=== PATIENT | female | born 1980 | race Caucasian/White ===

== ENCOUNTER 2023-01-27 10:30 | Outpatient (AMB) | payer OTHER, SELFPAY ==
[2023-01-27 10:41] VITALS: BP 128/70; PULSE 75; O2SAT 99; BMI 31.7
--- NOTE | 2023-01-27 10:41 | MHC.OFFVIS ---
Intake Vital Signs 01/27/23 10:41 Height 4 ft 11 in Weight 157 lb BMI 31.7 BP 128/70 Blood Pressure Location Lt brachial Position Sitting Pulse 75 Pulse Source Pulse Oximeter Pulse Oximetry (%) 99 Oxygen Delivery Method Room Air Intake Visit Reasons: persistent cough Cna Ltc Required: No Allergies Sulfa Drugs Adverse Reaction (Severe, Uncoded 01/27/23 10:44) Rash HPI HPI Comments History of Present Illness Details The patient is here for pulmonary evaluation. The patient is a 42 year woman with a known history of asthma and chronic rhinitis, eczema and allergies. Apparently she was in her usual state health until liver more than a year ago when she started developing worsening asthma symptoms. Complaining of cough, typically nonproductive in nature. Also feeling chest heaviness and tightness. As a child she did allergy shots. She does not follow up with Allergy any longer. She did not have to. She was seen by Pulmonary in the [place]. She was scheduled to undergo a sleep study because of her underlying snoring but she did not have any significant sleep apnea. The patient spent struggling. She has been using QVAR on a daily basis. Also has a rescue inhaler that does provide some temporary relief. On exam she does have some expiratory wheezing suggesting active asthma uncontrolled at this time. Will optimize her by adding a long-acting beta agonist along with inhaled cortical steroid. I did provide her a spacer for better administration of the medication. The patient also was prescribed Singulair although she is not using it regularly. I did encourage her to do so. Will request PFTs and allergy testing to be done via blood work to better address her asthma phenotype. The patient did have a chest x-ray last in 2021 without any acute disease. We personally reviewed the x-ray together. [facility] Medical History (Updated 01/27/23 @ 22:16 by Fernando Campbell MD) Allergic rhinitis Asthma Atopic dermatitis Chronic cough Psoriasis Social History (Updated 01/27/23 @ 10:45 by BLANK Reyes) Patient Tobacco Use Status: Never used Tobacco Review of Systems Const Denies fever(s) Eyes Denies change in vision ENT Reports nasal congestion and Reports nasal discharge Card Denies chest pain Resp Reports cough and Reports wheezing GI Denies abdominal pain Musc Reports no additional complaints Skin/Breast Denies rash Neuro Reports no additional complaints Alex/Lymph Denies lymphadenopathy Aller/Immun Reports wheezing Physical Exam Vital Signs: Last Vital Signs Pulse 75 01/27/23 10:41 BP 128/70 01/27/23 10:41 Pulse Ox 99 01/27/23 10:41 Oxygen Delivery Method Room Air 01/27/23 10:41 BMI result Body Mass Index 31.7 Const General: comfortable HEENT Head: Yes atraumatic General nose exam: Abnormal mucous membranes and turbinates present erythematous Neck Neck: Yes supple Chest Chest palpation & inspection: normal inspection of the chest Resp Effort & Inspection: normal respiratory effort Auscultation: wheezes Cardio Rate: regular rate Rhythm: regular rhythm Heart sounds: S1 normal heart sound present and S2 normal heart sound present Skin General skin exam: no rashes or lesions noted Extrem General: Yes no clubbing, cyanosis or edema Assessment & Plan Assessment & Plan (1) Asthma: Code(s): J45.909 - Unspecified asthma, uncomplicated (2) Allergic rhinitis: Code(s): J30.9 - Allergic rhinitis, unspecified (3) Chronic cough: Code(s): R05.3 - Chronic cough (4) Atopic dermatitis: Code(s): L20.9 - Atopic dermatitis, unspecified Plan stop QVAR start Symbicort with spacer 2puff BID should take singulair PM PFTs at [facility]/ allergy testing F/U 6-8 weeks Orders: Orders Rast Allergen Today J30.9 - Allergic rhinitis, unspecified, J45.909 - Unspecified asthma, uncomplicated Complete Blood Count Auto Diff Today J30.9 - Allergic rhinitis, unspecified, J45.909 - Unspecified asthma, uncomplicated Erythrocyte Sedimentation Rate Today J30.9 - Allergic rhinitis, unspecified, J45.909 - Unspecified asthma, uncomplicated Immunoglobulin E Today J30.9 - Allergic rhinitis, unspecified, J45.909 - Unspecified asthma, uncomplicated Immunoglobulins,IgG IgA IgM Today J30.9 - Allergic rhinitis, unspecified, J45.909 - Unspecified asthma, uncomplicated PFT pulmonary function test Today J45.909 - Unspecified asthma, uncomplicated Medications: New budesonide-formoterol 160-4.5 mcg/actuation (Symbicort) 2 puffs inhalation BID 30 days 10.2 grams 11RF J44.9 - Chronic obstructive pulmonary disease, unspecified Coding Level of Care Code New Pt Level 4 (37064) Diagnoses Asthma J45.909 Allergic rhinitis J30.9 Chronic cough R05.3 Atopic dermatitis L20.9 Time Spent (min) 40
== END 2023-01-27 11:16 | disposition home or self-care (01) ==
PROVIDERS: PCP Internal Medicine; Visit Provider Hospitalist
DX: J45.909 Unspecified asthma, uncomplicated (principal); J30.9 Allergic rhinitis, unspecified; R05.3 Chronic cough; L20.9 Atopic dermatitis, unspecified
CPT/HCPCS: 99204

== ENCOUNTER → 2023-01-27 10:30 | Outpatient (BNVA) | payer OTHER, SELFPAY | PROVIDERS: PCP Internal Medicine; Visit Provider Hospitalist ==

== ENCOUNTER 2023-04-06 08:37 | Outpatient (AMB) | payer OTHER, SELFPAY ==
[2023-04-06 08:41] VITALS: BP 124/82; PULSE 81; RESP 12; O2SAT 95; BMI 31.9
--- NOTE | 2023-04-06 08:41 | MHC.OFFVIS ---
Intake Vital Signs 04/06/23 08:41 Height 4 ft 11 in Weight 158 lb BMI 31.9 BP 124/82 Blood Pressure Location Lt brachial Position Sitting Respiration 12 Pulse 81 Pulse Source Pulse Oximeter Pulse Oximetry (%) 95 Oxygen Delivery Method Room Air Intake Visit Reasons: Asthma Allergies Sulfa Drugs Adverse Reaction (Severe, Uncoded 04/06/23 08:44) Rash Medication List - Last Reconciled 04/06/23 by Brooke Crisostomo LPN albuterol sulfate 90 mcg/actuation 2 inhalations inhalation Q6-8H PRN azithromycin 500 mg PO DAILY 5 days budesonide-formoterol 160-4.5 mcg/actuation (Symbicort) 2 puffs inhalation BID 30 days cetirizine (Zyrtec) 10 mg PO DAILY PRN etonogestrel-ethinyl estradiol 0.12-0.015 mg/24 hr vag rings vaginal montelukast (Singulair) 10 mg PO BEDTIME HPI HPI Comments History of Present Illness Details The patient is a 42 year woman with a known history of asthma and chronic rhinitis, eczema and allergies. Apparently she was in her usual state health until liver more than a year ago when she started developing worsening asthma symptoms. Complaining of cough, typically nonproductive in nature. Also feeling chest heaviness and tightness. As a child she did allergy shots. She does not follow up with Allergy any longer. She did not have to. She was seen by Pulmonary in the [place]. She was scheduled to undergo a sleep study because of her underlying snoring but she did not have any significant sleep apnea. The patient spent struggling. She has been using QVAR on a daily basis. Also has a rescue inhaler that does provide some temporary relief. On exam she does have some expiratory wheezing suggesting active asthma uncontrolled at this time. Will optimize her by adding a long-acting beta agonist along with inhaled cortical steroid. I did provide her a spacer for better administration of the medication. The patient also was prescribed Singulair although she is not using it regularly. I did encourage her to do so. Will request PFTs and allergy testing to be done via blood work to better address her asthma phenotype. The patient did have a chest x-ray last in 2021 without any acute disease. We personally reviewed the x-ray together. 04/06/2023 the patient is here for a pulmonary follow-up visit. She continues to have her asthma symptoms. The Symbicort has been helpful. Although she feels sometimes is too strong making her jittery and tremulous. Therefore she is concerned about the medication. She has been complaining of back discomfort and also bilateral chest discomfort. She has not had a recent chest x-ray. Her respiratory exam is clear therefore do not believe is related to her bronchospasms. Although, she does have significant allergies. We did look at her allergy testing. Her IgE is elevated and all leona has severe allergies to primarily cats. She does not have any cats. She is also allergic to certain foods sec on a give her a uncomfortable feeling her mouth and throat. Therefore will go ahead and provide her with an EpiPen. We got a T sure how to use it. In addition to that will have her undergo a chest x-ray and a spine x-ray of the thorax. If the patient continues to have chest discomfort and back discomfort pleuritic in nature will consider further imaging studies. For now although she will continue with the Symbicort but she will decrease it down to 1 puff at a time with hopes that she can tolerated better. She also can consider singular specially with her allergies although she is concerned about the remote adverse effect of mood disorders. [facility] Medical History (Updated 04/06/23 @ 18:42 by Fernando Campbell MD) Pleuritic chest pain Atopic dermatitis Psoriasis Chronic cough Allergic rhinitis Asthma Social History (Updated 01/27/23 @ 10:45 by BLANK Reyes) Patient Tobacco Use Status: Never used Tobacco Review of Systems Const Denies fever(s) Eyes Denies change in vision ENT Reports nasal congestion and Reports nasal discharge Card Reports chest pain Resp Reports cough and Reports wheezing GI Denies abdominal pain Musc Reports no additional complaints and Reports back pain Skin/Breast Denies rash Neuro Reports no additional complaints Alex/Lymph Denies lymphadenopathy Aller/Immun Reports wheezing Physical Exam Vital Signs: Last Vital Signs Pulse 81 04/06/23 08:41 Resp 12 04/06/23 08:41 BP 124/82 04/06/23 08:41 Pulse Ox 95 04/06/23 08:41 Oxygen Delivery Method Room Air 04/06/23 08:41 BMI result Body Mass Index 31.9 Const General: comfortable HEENT Head: Yes atraumatic General nose exam: Abnormal mucous membranes and turbinates present erythematous Neck Neck: Yes supple Chest Chest palpation & inspection: normal inspection of the chest Resp Effort & Inspection: normal respiratory effort Auscultation: no wheezes and diminished lung sounds Cardio Rate: regular rate Rhythm: regular rhythm Heart sounds: S1 normal heart sound present and S2 normal heart sound present Skin General skin exam: no rashes or lesions noted Extrem General: Yes no clubbing, cyanosis or edema Assessment & Plan Assessment & Plan (1) Asthma: Code(s): J45.909 - Unspecified asthma, uncomplicated Qualifiers: Asthma severity: moderate Asthma persistence: persistent Asthma complication type: uncomplicated Qualified Code(s): J45.40 - Moderate persistent asthma, uncomplicated (2) Allergic rhinitis: Code(s): J30.9 - Allergic rhinitis, unspecified Qualifiers: Allergic rhinitis trigger: animal hair and dander Qualified Code(s): J30.81 - Allergic rhinitis due to animal (cat) (dog) hair and dander (3) Chronic cough: Code(s): R05.3 - Chronic cough (4) Atopic dermatitis: Code(s): L20.9 - Atopic dermatitis, unspecified Qualifiers: Atopic dermatitis type: flexural Qualified Code(s): L20.89 - Other atopic dermatitis (5) Pleuritic chest pain: Code(s): R07.81 - Pleurodynia Plan continue Symbicort with spacer 1puff BID consider singulair PM Epipen, needs teaching severe allergic reaction to cats and dogs consider Xolair CXR/thoracic spine xrays, conisder addiitional imaging if non diagnostic F/U 4 months Orders: Orders XR thoracic spine 2V Today R07.81 - Pleurodynia XR chest 2V Today R07.81 - Pleurodynia Medications: New epinephrine (EpiPen 2-Rajat) for 2 doses 0.3 mg (0.3 mL) IM Q10M 30 days PRN 2 ea 6RF anaphylaxis J45.40 - Moderate persistent asthma, uncomplicated Coding Level of Care Code Est Pt Level 4 (16001) Diagnoses Moderate persistent asthma without complication J45.40 Asthma severity: moderate Asthma persistence: persistent Asthma complication type: uncomplicated Allergic rhinitis due to animal hair and dander J30.81 Allergic rhinitis trigger: animal hair and dander Chronic cough R05.3 Flexural atopic dermatitis L20.89 Atopic dermatitis type: flexural Pleuritic chest pain R07.81 Time Spent (min) 17
== END 2023-04-06 09:05 | disposition home or self-care (01) ==
PROVIDERS: PCP Internal Medicine; Visit Provider Hospitalist
DX: J45.40 Moderate persistent asthma, uncomplicated (principal); J30.81 Allergic rhinitis due to animal (cat) (dog) hair and dander; R05.3 Chronic cough; L20.89 Other atopic dermatitis; R07.81 Pleurodynia
CPT/HCPCS: 99214

== ENCOUNTER → 2023-04-06 08:37 | Outpatient (BNVA) | payer OTHER, SELFPAY | PROVIDERS: PCP Internal Medicine; Visit Provider Hospitalist ==